=== PATIENT | female | born 1970 | race Caucasian/White ===

== ENCOUNTER 2018-03-10 14:56 | Emergency (ER) | payer OTHER ==
[~2018-03-10] VITALS: Ht 154.9 cm; Wt 87.1 kg
[2018-03-10 15:00] VITALS: BP 131/70
[2018-03-10] MEDS: PROCHLORPERAZINE 10 MG/2 ML VIAL IM ONE (16:42)
[2018-03-10] MEDS: diphenhydrAMINE 50 MG/ML VIAL IM ONE (16:42)
[2018-03-10 17:08] VITALS: BP 131/70
== END 2018-03-10 17:08 | disposition home or self-care (01) ==
LOC: MED 14:56
DX: R51 Headache (principal); H53.149 Visual discomfort, unspecified
CPT/HCPCS: 96372; 99283; J0780; J1200